=== PATIENT | male | born 1975 | race Caucasian/White ===

== ENCOUNTER 2019-09-14 10:33 | Inpatient (IN) ==
[2019-09-14] MEDS ORDERED: IOPAMIDOL 100 ML BOTTLE IV ONE (10:34)
[2019-09-14] MEDS ORDERED: 0.9 % SODIUM CHLORIDE 1,000 ML IV ONE ×2 (10:51→12:00)
--- NOTE | 2019-09-14 11:18 | Emergency Department Note ---
Abdominal Pain HPI - General Chief Complaint: Abdominal Pain Stated Complaint: Abdominal pain Time Seen by Provider: 09/14/19 11:15 Source: patient Mode of arrival: ambulatory Limitations: no limitations - History of Present Illness HPI Narrative: 44-year-old male comes in complaining of right lower quadrant pain for the last 2 weeks. Yesterday he developed a fever. He notes watery diarrhea that is been going on around the same time. Denies any trouble urinating or shortness of breath. No nausea or vomiting. Pain in the right lower quadrant is significant but only with movement at rest its much lower in quality. Pain is sharp stabbing and goes down into his right groin. He has had bilateral inguinal hernia repair as a child. Patient initially went to [facility] where he was seen by Virgil Alvarado. He was sent over out of concern for possible appendicitis. I took report from Virgil and agreed to accept the patient Patient is currently being treated by [facility] for back pain and has had several steroid shots - Related Data Previous Rx's Medication Instructions Recorded valacyclovir 500 mg tablet 500 mg PO BID PRN #60 tab 05/04/18 gabapentin 300 mg capsule 300 mg PO QHS #15 cap 03/25/19 hydrocodone 5 mg-acetaminophen 325 See Rx Instructions .ROUTE 03/25/19 mg tablet .COMPLEX PRN #15 tab lidocaine 5 % topical patch 1 patch TOPICAL QDAY #15 each 03/25/19 Allergies Allergy/AdvReac Type Severity Reaction Status Date / Time wool Allergy Unknown itchy, Verified 09/14/19 10:33 swollen lips gabapentin AdvReac Mild Other Verified 09/14/19 10:34 hydrocodone AdvReac Mild Nausea Verified 09/14/19 10:34 tramadol AdvReac Mild Nausea Verified 09/14/19 10:34 Review of Systems All systems ED: reviewed and negative except as stated. Abdominal Pain PMH - Past Medical History Attestation: Yes: The following information was validated with the patient. PMF Narrative: Family History (Last Reviewed 03/09/19 @ 18:27 by Virgil Choi PA-C) Father Cholelithiasis Chronic kidney disease Heart disease Hypertension, essential Myocardial infarction acute, Onset Age: 37 Tobacco abuse Mother Depression Depressive disorder Grandmother Diabetes mellitus Brother Motor vehicle accident Medical History (Last Reviewed 03/25/19 @ 15:45 by Little Bellamy DO) Recurrent cold sores (Chronic) Migraine (Chronic) Kidney stones (Chronic) Past Surgical History (Last Reviewed 03/09/19 @ 18:27 by Virgil Choi PA-C) History of hernia surgery (Chronic) History of wisdom tooth extraction (Chronic) - Social History Smoking status: Never smoker Physical Exam No acute distress resting comfortably. Normocephalic atraumatic. Conjunctive are clear sclerae white nonicteric. No nasal discharge or congestion. Oropharynx pink moist. Posterior pharynx is clear. Neck is supple without lymphadenopathy thyromegaly or carotid bruit. Heart is regular rate and rhythm no murmur appreciated. Lungs are clear to auscultation bilaterally without wheezes rales rhonchi or respiratory distress. Abdomen is soft significantly tender in the right lower quadrant. Pain does radiate down his leg. No guarding. No rigidity. Alert oriented Limitations: no limitations Course Vital Signs Temperature 98.1 F 09/14/19 10:34 Pulse Rate 146 H 09/14/19 10:34 Respiratory Rate 16 09/14/19 10:34 Blood Pressure 142/92 09/14/19 10:34 Pulse Oximetry (%) 97 09/14/19 10:34 Temperature 103 F H 09/14/19 11:42 Pulse Rate 128 H 09/14/19 11:50 Respiratory Rate 16 09/14/19 10:34 Blood Pressure 152/91 09/14/19 11:50 Pulse Oximetry (%) 98 09/14/19 11:50 Abdominal Pain - Lab Data Lab results reviewed: Yes I reviewed the patient's lab results. Result diagrams: 09/14/19 10:51 09/14/19 10:51 Lab Results 09/14/19 09/14/19 09/14/19 Range/Units 10:51 10:51 10:51 WBC 20.0 H (4.50-11.00) K/mcL RBC 4.47 L (4.63-6.08) M/mcL Hgb 14.8 (13.7-17.5) g/dL Hct 43.8 (40.1-51.0) % MCV 98.0 (80.0-100.0) fL MCH 33.1 (26.0-34.0) pg MCHC 33.8 (31.0-36.0) g/dL RDW 12.4 (11.5-14.5) % Plt Count 333 (140-440) K/mcL MPV 10.1 (7.4-10.4) fL Gran % 81.9 H (38.0-78.0) % Lymph % (Auto) 7.2 L (15.5-49.0) % [place] % (Auto) 10.4 (1.0-12.0) % Eos % (Auto) 0.2 (0.0-7.0) % Baso % (Auto) 0.3 (0.0-2.0) % Gran # 16.39 H (1.80-8.00) K/mcL Lymph # (Auto) 1.45 L (1.50-4.80) K/mcL [place] # (Auto) 2.09 H (0.10-0.90) K/mcL Eos # (Auto) 0.04 (0.00-0.70) K/mcL Baso # (Auto) 0.07 (0.00-0.30) K/mcL Differential Comment VBG Lactic Acid 1.3 (0.5-2.0) mmol/L Sodium TNP Potassium TNP Chloride TNP Carbon Dioxide TNP Anion Gap TNP BUN TNP Creatinine TNP GFR Calculation Not Reportable Glucose TNP Calcium TNP Total Bilirubin TNP AST TNP ALT TNP Alkaline Phosphatase TNP Total Protein TNP Albumin TNP Globulin TNP Albumin/Globulin Ratio TNP - Radiology Data Radiology results reviewed: Yes I reviewed the patient's radiology results. CT scan of the abdomen pelvis with contrast shows large appendix with pe riappendiceal inflammation consistent with severe appendicitis and abscess Disposition Pt seen by CHIEF OPERATING ENGINEER/PA only: No Clinical Impression: Acute appendicitis Qualifiers: Acute appendicitis type: with localized peritonitis Appendicitis gangrene presence: unspecified whether gangrene present Appendicitis perforation presence: unspecified whether perforation present Appendicitis abscess presence: with abscess Qualified Code(s): K35.33 - Acute appendicitis with perforation and localized peritonitis, with abscess Summary: Right lower quadrant pain with fever concerning for appendicitis but other possibilities include ureterolithiasis intra-abdominal abscess and other serious pathologies. CT scan is ordered along with IV fluids pain medicine and nausea medicine. Tylenol for fever. Laboratories Blood culture ordered as well as Zosyn CT scan showed severe appendicitis with abscess. He does have leukocytosis as well but laboratories were hemolyzed so chemistries had to be repeated. I discussed these findings with Dr. Kenneth Valdez, general surgeon. He advised me to go ahead admit the patient to the hospital treat pain nausea and keep him n.p.o. for surgery later this afternoon. I will write transition orders Disposition: Xfer As Inpt ([facility]) Condition: Fair Referrals: Amy Phelps DNP, FILLER MIXER [Primary Care Provider] - Kenneth Valdez MD [Physician] -
[2019-09-14] MEDS ORDERED: ACETAMINOPHEN 325 MG TABLET PO ONE (11:21)
[2019-09-14] MEDS ORDERED: ONDANSETRON 4 MG/2 ML VIAL IV ONE ×2 (11:30→15:09)
[2019-09-14] MEDS ORDERED: PIPERACILLIN SODIUM/TAZOBACTAM 3.375 GM in DEXTROSE 5% IN WATER 50 ML IV ONE (11:38)
--- NOTE | 2019-09-14 11:41 | Cat Scan Report ---
History: Right lower quadrant pain, fever and diarrhea TECHNIQUE: The patient was imaged following intravenous but no oral contrast scanning during the portal venous phase from the diaphragm to the symphysis pubis. Sagittal and coronal reformats were created. Radiation exposure was limited using dose reduction technology. FINDINGS: There is minor dependent atelectasis in right lung base. No pleural effusion is present. The liver and spleen are normal in size and homogeneous. The gallbladder and bile ducts are normal. The pancreas is normal and homogeneous, without evidence of a mass or inflammation. The adrenals are normal. There is mild stranding of the pararenal fat around the right kidney and there is a 1 mm nonobstructing stone in a lower pole calyx of right kidney. There is no hydronephrosis. Left kidney is normal. Both ureters are decompressed. Aorta and inferior vena cava are normal. Patient has severe acute appendicitis. The appendix measures 2.7 cm in diameter and there is a large amount of perivesical appendiceal inflammation. A periappendiceal abscess is present posterior and inferior to the appendix. It is located lateral to the right psoas muscle and above the iliac is. It measures 4 x 5 x 7 cm. There is no evidence of bowel obstruction. No ascites or free intraperitoneal air are present. There are no abnormally enlarged lymph nodes. Urinary bladder is normal. Prostate is borderline enlarged and contains several calcifications in the transitional zone. There is a fat-containing left inguinal hernia. IMPRESSION: Severe appendicitis with a periappendiceal abscess The ER was called with results Interpreted and Authenticated by: Jean Paul Guevara 09/14/19
[2019-09-14 11:52] LABS: Basophils # (Auto) 0.07 K/mcL (0.00-0.30); Basophils % (Auto) 0.3 % (0.0-2.0); Eosinophils # (Auto) 0.04 K/mcL (0.00-0.70); Eosinophils % (Auto) 0.2 % (0.0-7.0); Granulocytes % (Auto) 81.9 % (38.0-78.0); Hematocrit 43.8 % (40.1-51.0); Hemoglobin 14.8 g/dL (13.7-17.5); Lymphocytes # (Auto) 1.45 K/mcL (1.50-4.80); Lymphocytes % (Auto) 7.2 % (15.5-49.0); Mean Corpuscular HGB Conc 33.8 g/dL (31.0-36.0); Mean Platelet Volume 10.1 fL (7.4-10.4); Monocytes # (Auto) 2.09 K/mcL (0.10-0.90); Monocytes % (Auto) 10.4 % (1.0-12.0); Platelet Count 333 K/mcL (140-440); RBC 4.47 M/mcL (4.63-6.08); Red Cell Distribution Width 12.4 % (11.5-14.5)
[2019-09-14] MEDS: HYDROmorphone 2 MG/ML VIAL IV PRN ×3 (11:59→19:02)
[2019-09-14] MEDS ORDERED: ONDANSETRON 4 MG/2 ML VIAL IV PRN ×3 (12:06→18:25)
[2019-09-14] MEDS ORDERED: 0.9 % SODIUM CHLORIDE 1,000 ML IV SCH (12:15)
--- NOTE | 2019-09-14 12:31 | XRay Report ---
HISTORY: Preop for appendicitis FINDINGS: Right diaphragm is mild to moderately elevated. This is of undetermined etiology. The lungs are clear. There is no pneumonia, pulmonary vascular congestion or pleural effusion. The heart size, mediastinum and anahy are normal. IMPRESSION: Elevated right diaphragm. The chest is otherwise normal. Interpreted and Authenticated by: Jean Paul Guevara 09/14/19
[2019-09-14 12:52] LABS: Prothrombin Time 13.5 sec (11.9-14.5)
[2019-09-14 12:58] LABS: Appearance,Urine CLEAR; Bacteria,Urine 0 /hpf (0); Bilirubin,Urine NEG (NEG); Color,Urine YELLOW; Culture Indicated,Urine NO; Glucose,Urine (UA) NEGATIVE (NEG); Ketones,Urine 80 mg/dL (NEG); Leukocyte Esterase,Urine NEG /uL (NEG); Mucus,Urine FEW /hpf (0); Nitrate,Urine NEG (NEG); Protein,Urine NEG (NEG); Specific Gravity,Urine 1.027 (1.000-1.035); Urine Blood NEG mg/dL (<0.03); Urine RBC < 1 /hpf (0-1); Urine Squamous Epithelial Cell 0 /hpf (0-4); Urine WBC < 1 /hpf (0-4); Urobilinogen,Urine NEG (NEG)
[2019-09-14] MEDS ORDERED: IPRATROPIUM/ALBUTEROL 3 ML AMPUL.NEB NEB PRN ×2 (13:45→15:48)
[2019-09-14] MEDS ORDERED: SCOPOLAMINE 1 PATCH PATCH TOPICAL PRN ×2 (13:45→18:25)
--- NOTE | 2019-09-14 14:45 | General Surg History&Physical ---
History of Present Illness Patient information: Note initiated : 09/14/19 at 2:42 pm Service Date, if different from initiated Date: [] Patient: Felix Morin 44 y/o M admitted on 09/14/19 for Abdominal Pain. Chief Complaint: [] HPI: Mr. Morin is a 44 year old M admitted with acute appendicitis with possible pe rforation and periappendiceal abscess. Patient has had right lower quadrant pain of a progressive nature for at least 2 weeks. He has had fever and sweats for the last 7-10 days. He noted increasing difficulty with lifting his right leg and felt a sharp pain in his right groin with increase in his abdominal pain. He was seen and minor care and referred to the emergency room. He is noted to have elevated temperature with white count of 20,000. CT of the abdomen shows a very infected appendix with extensive periappendiceal tissue edema and a large para appendiceal abscess. Patient is admitted and will have an attempt at laparoscopic appendectomy. He is informed that he may have to have an open procedure. Review of Systems All systems PM: reviewed and no additional remarkable complaints except as stated (negative except as noted in the HPI) Past History Past medical history: Chronic low back pain Past surgical history: Bilateral inguinal hernias as an infant Past family history: Coronary artery disease. Hypertension. Diabetes mellitus Past social history: Never smoker. Frequent alcohol use. Denies drug use Medications and Allergies Home Medications Medication Instructions Recorded Confirmed Type No Known Home Meds 09/14/19 09/14/19 History Allergies Allergy/AdvReac Type Severity Reaction Status Date / Time wool Allergy Unknown itchy, Verified 09/14/19 10:33 swollen lips gabapentin AdvReac Mild Other Verified 09/14/19 10:34 hydrocodone AdvReac Mild Nausea Verified 09/14/19 10:34 tramadol AdvReac Mild Nausea Verified 09/14/19 10:34 Exam Temp Pulse Resp BP Pulse Ox 98.5 F 116 H 16 126/83 95 09/14/19 12:39 09/14/19 12:39 09/14/19 12:39 09/14/19 12:39 09/14/19 12:39 - General physical appearance well developed, well nourished, moderate distress, moderate pain - Eyes PERRL, normal ocular movement - ENT normal pinna, normal nares, normal mucosa, no hearing loss, no congestion - Head Head exam IM: Present: atraumatic, normocephalic - Neck no masses, no bruits, trachea midline, no lymphadenopathy, no venous distension - Cardiovascular Cardiovascular exam IM: Present: normal rate and rhythm - Respiratory normal expansion, normal respiratory effort, clear to percussion, clear to auscultation - Abdomen Abdomen: Present: tender (tenderness with guarding and rebound in right lower quadrant), bowel sounds, masses ( palpable mass right lower quadrant) Hernia: Present: none - Genitourinary Present: normal penis with no external lesions - Integumentary Present: no rash, no growths, no abnormal pigmentation - Neurologic Present: normal coordination, normal sensation - Musculoskeletal Present: normal gait, normal posture - Psychiatric Present: oriented to time, oriented to person, oriented to place, speech is normal, memory intact Assessment and Plan (1) Acute appendicitis with perforation and localized peritonitis, with abscess Patient has been started on antibiotics and has been counseled for laparoscopic appendectomy. Because of the size of the abscess. He may need to have open procedure for better drainage and irrigation. Status: Acute
[2019-09-14 14:48] LABS: ALT/SGPT 59 U/l (0-40); AST/SGOT 44 U/l (0-37); Albumin 3.5 gm/dL (3.2-5.2); Albumin/Globulin Ratio 0.9 (1.0-2.3); Alkaline Phosphatase 71 U/L (39-117); Bilirubin,Total 0.4 mg/dL (0.0-1.0); Blood Urea Nitrogen 6 mg/dl (6-20); Calcium 8.5 mg/dl (8.6-10.4); Carbon Dioxide 18 mmol/L (22-30); Globulin 3.7 gm/dL (2.2-3.7); Glomerular Filtration Rate 108; Glucose 99 mg/dL (70-105)
[2019-09-14 14:51] LABS: Chloride 95 mmol/L (96-108)
[2019-09-14] MEDS ORDERED: fentaNYL 250 MCG/5 ML VIAL IV ONE (15:09)
[2019-09-14] MEDS ORDERED: SUGAMMADEX SODIUM 200 MG/2 ML VIAL IV ONE (15:09)
[2019-09-14] MEDS ORDERED: KETAMINE 100 MG/ML ML IV ONE (15:09)
[2019-09-14] MEDS ORDERED: LIDOCAINE HCL/PF 100 MG/5 ML SYRINGE IV ONE (15:09)
[2019-09-14] MEDS ORDERED: SUCCINYLCHOLINE 20 MG/ML ML IV ONE (15:09)
[2019-09-14] MEDS ORDERED: DEXAMETHASONE 10 MG/ML VIAL IV ONE (15:09)
[2019-09-14] MEDS ORDERED: PROPOFOL 200 MG/20 ML VIAL IV ONE (15:09)
[2019-09-14] MEDS ORDERED: ROCURONIUM 10 MG/ML ML IV ONE (15:09)
[2019-09-14] MEDS ORDERED: MIDAZOLAM 2 MG/2 ML VIAL IV ONE (15:09)
[2019-09-14] MEDS ORDERED: HETASTARCH 6% 500 ML BAG IV ONE (15:09)
[2019-09-14] MEDS ORDERED: METOPROLOL TARTRATE 5 MG/5 ML VIAL IV PRN (15:48)
[2019-09-14] MEDS ORDERED: PROMETHAZINE 25 MG/ML VIAL IV PRN ×2 (15:48→18:25)
[2019-09-14] MEDS ORDERED: HYDROmorphone 2 MG/ML VIAL IV PRN ×2 (15:48→18:25)
[2019-09-14] MEDS ORDERED: ePHEDrine 50 MG/ML AMPUL IV PRN (15:48)
[2019-09-14] MEDS ORDERED: ACETAMINOPHEN 1,000 MG/100 ML BOTTLE IV ONE (15:48)
[2019-09-14] MEDS ORDERED: diphenhydrAMINE 50 MG/ML VIAL IV PRN (15:48)
[2019-09-14] MEDS ORDERED: NALOXONE HCL 0.4 MG/ML VIAL IV PRN (15:48)
[2019-09-14] MEDS ORDERED: METHOCARBAMOL 1,000 MG/10 ML VIAL IV PRN (15:48)
[2019-09-14] MEDS ORDERED: ATROPINE SULFATE 0.4 MG/ML VIAL IV PRN (15:48)
[2019-09-14] MEDS ORDERED: MEPERIDINE 25 MG/ML SYRINGE IV PRN (15:48)
[2019-09-14] MEDS ORDERED: FLUMAZENIL 0.1 MG/ML ML IV PRN (15:48)
[2019-09-14] MEDS ORDERED: LACTATED RINGERS 1,000 ML IV SCH (16:00)
--- NOTE | 2019-09-14 16:35 | Brief Operative Note ---
Date of procedure: 09/14/19 Pre-op diagnosis: acute perforated appendicitis with abscess Post-op diagnosis: other (acute perforated appendicitis with abscess) Procedure: laparoscopic appendectomy with drainage of appendiceal abscess Grafts/Implants: No (agnieszka drain x2) Anesthesia: GETA Findings: appendix perforated in mid portion with major abscess at end of appendix Complications: none Surgeon: Kasey Valdez Estimated blood loss (cc): 50 Specimens Removed/Pathology: other (appendix) Condition: stable Disposition: PACU
[2019-09-14] MEDS: fentaNYL 100 MCG/2 ML VIAL IV PRN ×4 (17:00→17:10)
[2019-09-14] MEDS ORDERED: PIPERACILLIN SODIUM/TAZOBACTAM 3.375 GM in DEXTROSE 5% IN WATER 50 ML IV SCH (18:00)
[2019-09-14] MEDS: 0.9 % SODIUM CHLORIDE 1,000 ML IV SCH (19:02)
[2019-09-15] MEDS: PIPERACILLIN SODIUM/TAZOBACTAM 3.375 GM in DEXTROSE 5% IN WATER 50 ML IV SCH ×4 (00:22→18:12)
[2019-09-15] MEDS: HYDROmorphone 2 MG/ML VIAL IV PRN ×9 (00:22→23:04)
[2019-09-15] MEDS: 0.9 % SODIUM CHLORIDE 1,000 ML IV SCH ×3 (02:20→18:17)
[2019-09-15 06:31] LABS: Basophils # (Auto) 0.03 K/mcL (0.00-0.30); Basophils % (Auto) 0.1 % (0.0-2.0); Eosinophils # (Auto) 0.02 K/mcL (0.00-0.70); Eosinophils % (Auto) 0.1 % (0.0-7.0); Granulocytes % (Auto) 90.2 % (38.0-78.0); Hematocrit 41.6 % (40.1-51.0); Hemoglobin 13.5 g/dL (13.7-17.5); Lymphocytes # (Auto) 0.85 K/mcL (1.50-4.80); Lymphocytes % (Auto) 4.1 % (15.5-49.0); Mean Corpuscular HGB Conc 32.5 g/dL (31.0-36.0); Mean Platelet Volume 9.9 fL (7.4-10.4); Monocytes # (Auto) 1.14 K/mcL (0.10-0.90); Monocytes % (Auto) 5.5 % (1.0-12.0); Platelet Count 314 K/mcL (140-440); RBC 4.16 M/mcL (4.63-6.08); Red Cell Distribution Width 12.5 % (11.5-14.5); WBC 20.7 K/mcL (4.50-11.00)
[2019-09-15 07:09] LABS: ALT/SGPT 46 U/l (0-40); AST/SGOT 19 U/l (0-37); Albumin/Globulin Ratio 0.8 (1.0-2.3); Alkaline Phosphatase 54 U/L (39-117); Bilirubin,Direct < 0.2 mg/dL (0.0-0.3); Bilirubin,Total 0.5 mg/dL (0.0-1.0); Blood Urea Nitrogen 5 mg/dl (6-20); Calcium 8.6 mg/dl (8.6-10.4); Carbon Dioxide 21 mmol/L (22-30); Chloride 103 mmol/L (96-108); Globulin 3.9 gm/dL (2.2-3.7); Glomerular Filtration Rate 121; Glucose 190 mg/dL (70-105); Lactate Dehydrogenase 171 U/L (94-250); Triglycerides 50 mg/dl (<150); Uric Acid 4.2 mg/dL (2.5-8.0)
[2019-09-15] MEDS: ONDANSETRON 4 MG/2 ML VIAL IV PRN ×2 (09:32→15:44)
[2019-09-15] MEDS: SIMETHICONE 80 MG TAB.CHEW CHEWED PRN ×2 (12:39→15:44)
[2019-09-15] MEDS: METOCLOPRAMIDE 10 MG/2 ML VIAL IV SCH (18:12)
[2019-09-15] MEDS: MAG HYDROX/AL HYDROX/SIMETH 30 ML ORAL.SUSP PO PRN (19:46)
[2019-09-16] MEDS: PIPERACILLIN SODIUM/TAZOBACTAM 3.375 GM in DEXTROSE 5% IN WATER 50 ML IV SCH ×4 (00:30→17:42)
[2019-09-16] MEDS: METOCLOPRAMIDE 10 MG/2 ML VIAL IV SCH ×4 (00:57→17:43)
[2019-09-16] MEDS: 0.9 % SODIUM CHLORIDE 1,000 ML IV SCH ×4 (01:00→17:20)
[2019-09-16] MEDS: HYDROmorphone 2 MG/ML VIAL IV PRN ×8 (01:10→22:18)
[2019-09-16] MEDS: ACETAMINOPHEN 1,000 MG/100 ML BOTTLE IV PRN ×2 (02:29→16:05)
[2019-09-16 06:58] LABS: Basophils # (Auto) 0.03 K/mcL (0.00-0.30); Basophils % (Auto) 0.1 % (0.0-2.0); Eosinophils # (Auto) 0.01 K/mcL (0.00-0.70); Eosinophils % (Auto) 0 % (0.0-7.0); Granulocytes % (Auto) 88.4 % (38.0-78.0); Hematocrit 37.2 % (40.1-51.0); Hemoglobin 12.2 g/dL (13.7-17.5); Lymphocytes % (Auto) 6.1 % (15.5-49.0); Mean Cell Volume 99.5 fL (80.0-100.0); Mean Corpuscular HGB Conc 32.8 g/dL (31.0-36.0); Mean Platelet Volume 10.1 fL (7.4-10.4); Monocytes # (Auto) 1.16 K/mcL (0.10-0.90); Monocytes % (Auto) 5.4 % (1.0-12.0); Platelet Count 331 K/mcL (140-440); RBC 3.74 M/mcL (4.63-6.08); Red Cell Distribution Width 12.5 % (11.5-14.5); WBC 21.5 K/mcL (4.50-11.00)
[2019-09-16 07:37] LABS: ALT/SGPT 34 U/l (0-40); AST/SGOT 17 U/l (0-37); Albumin 2.7 gm/dL (3.2-5.2); Albumin/Globulin Ratio 0.9 (1.0-2.3); Alkaline Phosphatase 61 U/L (39-117); Bilirubin,Direct < 0.2 mg/dL (0.0-0.3); Bilirubin,Total 0.2 mg/dL (0.0-1.0); Blood Urea Nitrogen 6 mg/dl (6-20); Calcium 8.9 mg/dl (8.6-10.4); Chloride 99 mmol/L (96-108); Glomerular Filtration Rate 114; Glucose 150 mg/dL (70-105); Lactate Dehydrogenase 161 U/L (94-250); Triglycerides 78 mg/dl (<150)
[2019-09-16 07:40] LABS: Carbon Dioxide 26 mmol/L (22-30); Phosphorous 2.9 mg/dL (2.7-4.5)
--- NOTE | 2019-09-16 07:41 | General Surgery Progress Note ---
Subjective Narrative: Note initiated : 09/16/19 at 7:41 am Service Date, if different from initiated Date: [] Patient: Felix Morin 44 y/o M admitted on 09/14/19 for Abdominal Pain. Chief Complaint: [] Objective Temp Pulse Resp BP Pulse Ox 97.2 F 95 H 16 131/89 95 09/16/19 06:45 09/16/19 03:11 09/16/19 06:45 09/16/19 06:45 09/16/19 06:45 - Additional Data Intake & Output - Last 24 hours: Intake & Output 09/14/19 09/15/19 09/16/19 09/17/19 05:59 05:59 05:59 05:59 Intake Total 5200 6140 700 Output Total 4245 2565 740 Balance 955 3575 -40 Weight 217 lb 11.2 oz 228 lb 8 oz - Labs 09/16/19 05:31 09/16/19 03:41 Diabetes panel 09/16/19 Range/Units 03:41 Sodium 137 (133-145) mmol/L Potassium 3.9 (3.3-5.1) mmol/L Chloride 99 (96-108) mmol/L Carbon Dioxide 26 (22-30) mmol/L BUN 6 (6-20) mg/dl Creatinine 0.7 (0.7-1.2) mg/dl Glucose 150 H (70-105) mg/dL Calcium 8.9 (8.6-10.4) mg/dl AST 17 (0-37) U/l ALT 34 (0-40) U/l Alkaline Phosphatase 61 (39-117) U/L Total Protein 5.7 L (5.9-8.4) gm/dL Albumin 2.7 L (3.2-5.2) gm/dL Triglycerides 78 (<150) mg/dl Calcium panel 09/16/19 Range/Units 03:41 Calcium 8.9 (8.6-10.4) mg/dl Phosphorus 2.9 (2.7-4.5) mg/dL Albumin 2.7 L (3.2-5.2) gm/dL Pituitary panel 09/16/19 Range/Units 03:41 Sodium 137 (133-145) mmol/L Potassium 3.9 (3.3-5.1) mmol/L Chloride 99 (96-108) mmol/L Carbon Dioxide 26 (22-30) mmol/L BUN 6 (6-20) mg/dl Creatinine 0.7 (0.7-1.2) mg/dl Glucose 150 H (70-105) mg/dL Calcium 8.9 (8.6-10.4) mg/dl Adrenal panel 09/16/19 Range/Units 03:41 Sodium 137 (133-145) mmol/L Potassium 3.9 (3.3-5.1) mmol/L Chloride 99 (96-108) mmol/L Carbon Dioxide 26 (22-30) mmol/L BUN 6 (6-20) mg/dl Creatinine 0.7 (0.7-1.2) mg/dl Glucose 150 H (70-105) mg/dL Calcium 8.9 (8.6-10.4) mg/dl Total Bilirubin 0.2 (0.0-1.0) mg/dL AST 17 (0-37) U/l ALT 34 (0-40) U/l Alkaline Phosphatase 61 (39-117) U/L Total Protein 5.7 L (5.9-8.4) gm/dL Albumin 2.7 L (3.2-5.2) gm/dL Assessment and Plan (1) Acute appendicitis with perforation and localized peritonitis, with abscess Status: Acute Current Visit: Yes - Time Spent With Patient Total time spent is greater than 50% in coordination of care (as documented) at patient's floor/unit and/or counseling patient:
[2019-09-16] MEDS: ONDANSETRON 4 MG/2 ML VIAL IV PRN (09:40)
[2019-09-16] MEDS: SIMETHICONE 80 MG TAB.CHEW CHEWED PRN (11:55)
--- NOTE | 2019-09-16 12:43 | Surgical Pathology Report ---
HISTOLOGY SPECIMEN MICROSCOPIC DIAGNOSIS APPENDIX, APPENDECTOMY: -- ACUTE APPENDICITIS WITH SEROSITIS. (EBD:adj) PROCEDURAL IMPRESSION Acute appendicitis. GROSS DESCRIPTION Received in formalin labeled appendicitis/appendix, is a fragmented appendix. When reconstructed it is approximately 6 cm long by up to 1.6 cm in diameter, pink to purple-heller appendix. The lumen contains a minimal amount of soft pink-heller material. The tip is disrupted. A large possible perforation is present where the two fragments are . Bank Boss sections submitted in two cassettes. (STS:adj) Electronically Signed by: Tigist Alston M.D.
--- NOTE | 2019-09-16 16:04 | General Surgery Progress Note ---
Subjective Patient reports: pain is less, no flatus, no bowel movement, nausea, afebrile Narrative: Note initiated : 09/16/19 at 4:02 pm Service Date, if different from initiated Date: [] Patient: Felix Morin 44 y/o M admitted on 09/14/19 for Abdominal Pain. Chief Complaint: [Patient has significant ileus with bloating. He complains of his abdomen feeling tight. He has not had flatus for. He also has some reflux symptoms. He's been afebrile. However, his white blood count is still elevated at 21.5. Inpatient panel is normal.] Objective Temp Pulse Resp BP Pulse Ox 99.2 F H 122 H 16 149/86 92 09/16/19 12:00 09/16/19 12:00 09/16/19 12:00 09/16/19 12:00 09/16/19 12:00 - Additional Data Intake & Output - Last 24 hours: Intake & Output 09/14/19 09/15/19 09/16/19 09/17/19 05:59 05:59 05:59 05:59 Intake Total 5200 6140 2260 Output Total 4245 2565 1280 Balance 955 3575 980 Weight 217 lb 11.2 oz 228 lb 8 oz - General physical appearance well developed, well nourished, moderate distress, moderate pain - Eyes PERRL, normal ocular movement - ENT normal pinna, normal nares, normal mucosa, no hearing loss, no congestion - Neck no masses, no bruits, trachea midline, no lymphadenopathy, no venous distension - Respiratory normal expansion, normal respiratory effort, clear to auscultation - Cardiovascular Cardiovascular exam: Present: normal rate and rhythm, RRR, +S1, +S2. Absent: JVD, tachycardia - Abdomen distended (abdomen is distended with active bowel sounds; moderate tenderness in right lateral abdomen) - Integumentary no rash, no growths, no abnormal pigmentation - Neurologic normal coordination, normal sensation - Musculoskeletal normal gait, normal posture - Psychiatric oriented to time, oriented to person, oriented to place, speech is normal, memory intact - Labs 09/16/19 05:31 09/16/19 03:41 Diabetes panel 09/16/19 Range/Units 03:41 Sodium 137 (133-145) mmol/L Potassium 3.9 (3.3-5.1) mmol/L Chloride 99 (96-108) mmol/L Carbon Dioxide 26 (22-30) mmol/L BUN 6 (6-20) mg/dl Creatinine 0.7 (0.7-1.2) mg/dl Glucose 150 H (70-105) mg/dL Calcium 8.9 (8.6-10.4) mg/dl AST 17 (0-37) U/l ALT 34 (0-40) U/l Alkaline Phosphatase 61 (39-117) U/L Total Protein 5.7 L (5.9-8.4) gm/dL Albumin 2.7 L (3.2-5.2) gm/dL Triglycerides 78 (<150) mg/dl Calcium panel 09/16/19 Range/Units 03:41 Calcium 8.9 (8.6-10.4) mg/dl Phosphorus 2.9 (2.7-4.5) mg/dL Albumin 2.7 L (3.2-5.2) gm/dL Pituitary panel 09/16/19 Range/Units 03:41 Sodium 137 (133-145) mmol/L Potassium 3.9 (3.3-5.1) mmol/L Chloride 99 (96-108) mmol/L Carbon Dioxide 26 (22-30) mmol/L BUN 6 (6-20) mg/dl Creatinine 0.7 (0.7-1.2) mg/dl Glucose 150 H (70-105) mg/dL Calcium 8.9 (8.6-10.4) mg/dl Adrenal panel 09/16/19 Range/Units 03:41 Sodium 137 (133-145) mmol/L Potassium 3.9 (3.3-5.1) mmol/L Chloride 99 (96-108) mmol/L Carbon Dioxide 26 (22-30) mmol/L BUN 6 (6-20) mg/dl Creatinine 0.7 (0.7-1.2) mg/dl Glucose 150 H (70-105) mg/dL Calcium 8.9 (8.6-10.4) mg/dl Total Bilirubin 0.2 (0.0-1.0) mg/dL AST 17 (0-37) U/l ALT 34 (0-40) U/l Alkaline Phosphatase 61 (39-117) U/L Total Protein 5.7 L (5.9-8.4) gm/dL Albumin 2.7 L (3.2-5.2) gm/dL Assessment and Plan (1) Acute appendicitis with perforation and localized peritonitis, with abscess Status: Acute Assessment and plan: We will continue present therapy. Patient is given milk of magnesia every 4 hours 4 doses. Will check abdominal series on Thursday. Current Visit: Yes - Time Spent With Patient Total time spent is greater than 50% in coordination of care (as documented) at patient's floor/unit and/or counseling patient:
[2019-09-16] MEDS: MAGNESIUM HYDROXIDE 30 ML ORAL.SUSP PO SCH ×2 (17:43→22:11)
[2019-09-16] MEDS: MAG HYDROX/AL HYDROX/SIMETH 30 ML ORAL.SUSP PO PRN (22:11)
[2019-09-17] MEDS: PIPERACILLIN SODIUM/TAZOBACTAM 3.375 GM in DEXTROSE 5% IN WATER 50 ML IV SCH ×3 (00:03→12:09)
[2019-09-17] MEDS: ONDANSETRON 4 MG/2 ML VIAL IV PRN (00:12)
[2019-09-17] MEDS: HYDROmorphone 2 MG/ML VIAL IV PRN ×8 (00:16→23:13)
[2019-09-17] MEDS: MAGNESIUM HYDROXIDE 30 ML ORAL.SUSP PO SCH ×2 (00:33→04:38)
[2019-09-17] MEDS: 0.9 % SODIUM CHLORIDE 1,000 ML IV SCH ×3 (00:37→17:08)
[2019-09-17] MEDS: ACETAMINOPHEN 1,000 MG/100 ML BOTTLE IV PRN ×2 (02:30→13:09)
[2019-09-17] MEDS: MAG HYDROX/AL HYDROX/SIMETH 30 ML ORAL.SUSP PO PRN (04:38)
[2019-09-17] MEDS: METOCLOPRAMIDE 10 MG/2 ML VIAL IV SCH ×4 (06:37→17:42)
[2019-09-17 06:42] LABS: Basophils # (Auto) 0.03 K/mcL (0.00-0.30); Basophils % (Auto) 0.2 % (0.0-2.0); Eosinophils # (Auto) 0.04 K/mcL (0.00-0.70); Eosinophils % (Auto) 0.2 % (0.0-7.0); Granulocytes % (Auto) 86.6 % (38.0-78.0); Hematocrit 38.4 % (40.1-51.0); Hemoglobin 12.5 g/dL (13.7-17.5); Lymphocytes # (Auto) 1.09 K/mcL (1.50-4.80); Lymphocytes % (Auto) 6.3 % (15.5-49.0); Mean Cell Volume 99.7 fL (80.0-100.0); Mean Corpuscular HGB Conc 32.6 g/dL (31.0-36.0); Monocytes # (Auto) 1.17 K/mcL (0.10-0.90); Monocytes % (Auto) 6.7 % (1.0-12.0); Platelet Count 381 K/mcL (140-440); RBC 3.85 M/mcL (4.63-6.08); Red Cell Distribution Width 12.8 % (11.5-14.5); WBC 17.4 K/mcL (4.50-11.00)
[2019-09-17 07:16] LABS: ALT/SGPT 29 U/l (0-40); AST/SGOT 13 U/l (0-37); Albumin 2.8 gm/dL (3.2-5.2); Albumin/Globulin Ratio 0.9 (1.0-2.3); Alkaline Phosphatase 71 U/L (39-117); Bilirubin,Direct < 0.2 mg/dL (0.0-0.3); Bilirubin,Total 0.2 mg/dL (0.0-1.0); Blood Urea Nitrogen 6 mg/dl (6-20); Calcium 8.8 mg/dl (8.6-10.4); Chloride 97 mmol/L (96-108); Globulin 3.1 gm/dL (2.2-3.7); Glomerular Filtration Rate 114; Glucose 157 mg/dL (70-105); Lactate Dehydrogenase 163 U/L (94-250); Phosphorous 3.2 mg/dL (2.7-4.5); Triglycerides 68 mg/dl (<150); Uric Acid 1.6 mg/dL (2.5-8.0)
[2019-09-17 07:17] LABS: Carbon Dioxide 32 mmol/L (22-30)
--- NOTE | 2019-09-17 13:39 | General Surgery Progress Note ---
Subjective Patient reports: feels better, pain is less, no flatus, no bowel movement Narrative: Note initiated : 09/17/19 at 1:37 pm Service Date, if different from initiated Date: [] Patient: Felix Morin 44 y/o M admitted on 09/14/19 for Abdominal Pain. Chief Complaint: [Patient is stable but still has significant ileus. He has abdominal distention. He did not have any fever spikes during the night. White blood count 17.4, hemoglobin 12.5, hematocrit 38.4. Cultures had finally been identified and he's growing out Escherichia coli Eikenella species and gram- positive cocci all 3 organisms are more sensitive to Cipro then said the pain so antibiotics were changed.] Objective Temp Pulse Resp BP Pulse Ox 98.0 F 127 H 20 143/95 92 09/17/19 13:09 09/17/19 12:00 09/17/19 12:00 09/17/19 12:00 09/17/19 12:00 - Additional Data Intake & Output - Last 24 hours: Intake & Output 09/15/19 09/16/19 09/17/19 09/18/19 05:59 05:59 05:59 05:59 Intake Total 5200 6140 5840 1577 Output Total 4245 2565 4575 450 Balance 955 3575 1265 1127 Weight 217 lb 11.2 oz 228 lb 8 oz 228 lb - General physical appearance well developed, well nourished, moderate distress, moderate pain - Eyes PERRL, normal ocular movement - ENT normal pinna, normal nares, normal mucosa, no hearing loss, no congestion - Neck no masses, no bruits, trachea midline, no lymphadenopathy, no venous distension - Respiratory normal expansion, normal respiratory effort, clear to auscultation - Cardiovascular Cardiovascular exam: Present: normal rate and rhythm, RRR, +S1, +S2, tachycardia. Absent: JVD - Abdomen tender (mild tenderness in right lower quadrant and around port sites), bowel sounds (present), surgical scars (none), masses (none), distended (major distention of abdomen. Throughout with you. Active bowel sounds) - Integumentary no rash, no growths, no abnormal pigmentation - Neurologic normal coordination, normal sensation - Musculoskeletal normal gait, normal posture - Psychiatric oriented to time, oriented to person, oriented to place, speech is normal, memory intact - Labs 09/17/19 05:40 09/17/19 05:40 Diabetes panel 09/17/19 Range/Units 05:40 Sodium 140 (133-145) mmol/L Potassium 3.5 (3.3-5.1) mmol/L Chloride 97 (96-108) mmol/L Carbon Dioxide 32 H (22-30) mmol/L BUN 6 (6-20) mg/dl Creatinine 0.7 (0.7-1.2) mg/dl Glucose 157 H (70-105) mg/dL Calcium 8.8 (8.6-10.4) mg/dl AST 13 (0-37) U/l ALT 29 (0-40) U/l Alkaline Phosphatase 71 (39-117) U/L Total Protein 5.9 (5.9-8.4) gm/dL Albumin 2.8 L (3.2-5.2) gm/dL Triglycerides 68 (<150) mg/dl Calcium panel 09/17/19 Range/Units 05:40 Calcium 8.8 (8.6-10.4) mg/dl Phosphorus 3.2 (2.7-4.5) mg/dL Albumin 2.8 L (3.2-5.2) gm/dL Pituitary panel 09/17/19 Range/Units 05:40 Sodium 140 (133-145) mmol/L Potassium 3.5 (3.3-5.1) mmol/L Chloride 97 (96-108) mmol/L Carbon Dioxide 32 H (22-30) mmol/L BUN 6 (6-20) mg/dl Creatinine 0.7 (0.7-1.2) mg/dl Glucose 157 H (70-105) mg/dL Calcium 8.8 (8.6-10.4) mg/dl Adrenal panel 09/17/19 Range/Units 05:40 Sodium 140 (133-145) mmol/L Potassium 3.5 (3.3-5.1) mmol/L Chloride 97 (96-108) mmol/L Carbon Dioxide 32 H (22-30) mmol/L BUN 6 (6-20) mg/dl Creatinine 0.7 (0.7-1.2) mg/dl Glucose 157 H (70-105) mg/dL Calcium 8.8 (8.6-10.4) mg/dl Total Bilirubin 0.2 (0.0-1.0) mg/dL AST 13 (0-37) U/l ALT 29 (0-40) U/l Alkaline Phosphatase 71 (39-117) U/L Total Protein 5.9 (5.9-8.4) gm/dL Albumin 2.8 L (3.2-5.2) gm/dL Assessment and Plan (1) Acute appendicitis with perforation and localized peritonitis, with abscess Status: Acute Assessment and plan: We will continue present therapy. Patient is given milk of magnesia every 4 hours 4 doses. Will check abdominal series on Thursday. Discontinue cefepime and start Cipro IV Current Visit: Yes - Time Spent With Patient Total time spent is greater than 50% in coordination of care (as documented) at patient's floor/unit and/or counseling patient:
[2019-09-17] MEDS: metroNIDAZOLE 500 MG/100 ML BAG IV SCH ×2 (15:36→19:15)
[2019-09-17] MEDS: CIPROFLOXACIN 400 MG/200 ML BAG IV SCH ×2 (17:45→23:37)
[2019-09-18] MEDS: metroNIDAZOLE 500 MG/100 ML BAG IV SCH ×5 (00:55→23:56)
[2019-09-18] MEDS: METOCLOPRAMIDE 10 MG/2 ML VIAL IV SCH ×5 (00:56→23:51)
[2019-09-18] MEDS: 0.9 % SODIUM CHLORIDE 1,000 ML IV SCH ×5 (01:00→20:45)
[2019-09-18] MEDS: HYDROmorphone 2 MG/ML VIAL IV PRN ×9 (02:03→23:55)
[2019-09-18] MEDS: CIPROFLOXACIN 400 MG/200 ML BAG IV SCH ×2 (09:41→20:48)
--- NOTE | 2019-09-18 13:14 | General Surgery Progress Note ---
Subjective Patient reports: feels better, pain is less, tolerating liquids well, flatus, bowel movement, afebrile Narrative: Note initiated : 09/18/19 at 1:12 pm Service Date, if different from initiated Date: [] Patient: Felix Morin 44 y/o M admitted on 09/14/19 for Abdominal Pain. Chief Complaint: [patient is clinically improved. He remains afebrile. He has had 3 bowel movements since yesterday. History Of Significantly Improve and He Denies Nausea.] Objective Temp Pulse Resp BP Pulse Ox 97.8 F 103 H 22 146/84 95 09/18/19 12:00 09/18/19 12:00 09/18/19 12:00 09/18/19 08:00 09/18/19 12:00 - Additional Data Intake & Output - Last 24 hours: Intake & Output 09/16/19 09/17/19 09/18/19 09/19/19 05:59 05:59 05:59 05:59 Intake Total 6140 5840 5267 2220 Output Total 2565 4575 1455 485 Balance 3575 1265 3812 1735 Weight 228 lb 8 oz 228 lb 231 lb - General physical appearance well developed, well nourished, no distress - Eyes PERRL, normal ocular movement - ENT normal pinna, normal nares, normal mucosa, no hearing loss, no congestion - Neck no masses, no bruits, trachea midline, no lymphadenopathy, no venous distension - Respiratory normal expansion, normal respiratory effort, clear to auscultation - Cardiovascular Cardiovascular exam: Present: normal rate and rhythm, RRR, +S1, +S2. Absent: JVD, tachycardia - Abdomen tender (moderate tenderness in right lower quadrant; mild distention; good active bowel sounds), bowel sounds (present), surgical scars (none), masses (none) - Integumentary no rash, no growths, no abnormal pigmentation - Neurologic normal coordination, normal sensation - Musculoskeletal normal gait, normal posture - Psychiatric oriented to time, oriented to person, oriented to place, speech is normal, memory intact - Labs 09/17/19 05:40 09/17/19 05:40 Assessment and Plan (1) Acute appendicitis with perforation and localized peritonitis, with abscess Status: Acute Assessment and plan: We will continue present therapy. Check CBC, an inpatient panel Current Visit: Yes - Time Spent With Patient Total time spent is greater than 50% in coordination of care (as documented) at patient's floor/unit and/or counseling patient:
[2019-09-18 15:31] LABS: Basophils # (Auto) 0.03 K/mcL (0.00-0.30); Basophils % (Auto) 0.2 % (0.0-2.0); Eosinophils # (Auto) 0.11 K/mcL (0.00-0.70); Eosinophils % (Auto) 0.7 % (0.0-7.0); Granulocytes % (Auto) 82.4 % (38.0-78.0); Hematocrit 40.4 % (40.1-51.0); Hemoglobin 12.9 g/dL (13.7-17.5); Lymphocytes # (Auto) 1.36 K/mcL (1.50-4.80); Lymphocytes % (Auto) 8.6 % (15.5-49.0); Mean Cell Volume 102.5 fL (80.0-100.0); Mean Corpuscular HGB Conc 31.9 g/dL (31.0-36.0); Mean Platelet Volume 9.9 fL (7.4-10.4); Monocytes # (Auto) 1.27 K/mcL (0.10-0.90); Monocytes % (Auto) 8.1 % (1.0-12.0); Platelet Count 421 K/mcL (140-440); RBC 3.94 M/mcL (4.63-6.08); Red Cell Distribution Width 12.9 % (11.5-14.5); WBC 15.8 K/mcL (4.50-11.00)
[2019-09-18] MEDS: ACETAMINOPHEN 1,000 MG/100 ML BOTTLE IV PRN (16:33)
[2019-09-19] MEDS: HYDROmorphone 2 MG/ML VIAL IV PRN ×3 (03:09→12:11)
[2019-09-19] MEDS: METOCLOPRAMIDE 10 MG/2 ML VIAL IV SCH ×4 (05:37→23:29)
[2019-09-19] MEDS: 0.9 % SODIUM CHLORIDE 1,000 ML IV SCH ×2 (05:37→08:20)
[2019-09-19] MEDS: metroNIDAZOLE 500 MG/100 ML BAG IV SCH ×4 (05:42→23:29)
[2019-09-19 06:04] LABS: Basophils # (Auto) 0.04 K/mcL (0.00-0.30); Basophils % (Auto) 0.3 % (0.0-2.0); Eosinophils # (Auto) 0.13 K/mcL (0.00-0.70); Eosinophils % (Auto) 0.9 % (0.0-7.0); Granulocytes % (Auto) 81.8 % (38.0-78.0); Hematocrit 34.6 % (40.1-51.0); Hemoglobin 11.2 g/dL (13.7-17.5); Lymphocytes % (Auto) 8.7 % (15.5-49.0); Mean Cell Volume 99.7 fL (80.0-100.0); Mean Corpuscular HGB Conc 32.4 g/dL (31.0-36.0); Mean Platelet Volume 9.5 fL (7.4-10.4); Monocytes # (Auto) 1.24 K/mcL (0.10-0.90); Monocytes % (Auto) 8.3 % (1.0-12.0); Platelet Count 385 K/mcL (140-440); RBC 3.47 M/mcL (4.63-6.08); Red Cell Distribution Width 12.7 % (11.5-14.5)
[2019-09-19 06:26] LABS: ALT/SGPT 29 U/l (0-40); AST/SGOT 20 U/l (0-37); Albumin 2.5 gm/dL (3.2-5.2); Albumin/Globulin Ratio 0.9 (1.0-2.3); Alkaline Phosphatase 46 U/L (39-117); Bilirubin,Direct < 0.2 mg/dL (0.0-0.3); Bilirubin,Total 0.3 mg/dL (0.0-1.0); Calcium 7.8 mg/dl (8.6-10.4); Chloride 99 mmol/L (96-108); Globulin 2.9 gm/dL (2.2-3.7); Glucose 114 mg/dL (70-105); Lactate Dehydrogenase 149 U/L (94-250); Phosphorous 2.6 mg/dL (2.7-4.5); Triglycerides 46 mg/dl (<150)
[2019-09-19 06:36] LABS: Blood Urea Nitrogen 4 mg/dl (6-20); Carbon Dioxide 25 mmol/L (22-30); Glomerular Filtration Rate 131; Uric Acid 2.6 mg/dL (2.5-8.0)
[2019-09-19] MEDS: oxyCODONE/APAP 10/325MG TABLET PO PRN ×3 (08:37→20:49)
[2019-09-19] MEDS: CIPROFLOXACIN 400 MG/200 ML BAG IV SCH ×2 (08:38→20:49)
[2019-09-19] MEDS: POTASSIUM PHOSPHATE 40 MEQ in DEXTROSE 5% IN WATER 500 ML IV SCH ×2 (13:11→18:50)
--- NOTE | 2019-09-19 15:39 | General Surgery Progress Note ---
Subjective Patient reports: feels better, pain is less, tolerating liquids well, flatus, bowel movement, afebrile Narrative: Note initiated : 09/19/19 at 3:36 pm Service Date, if different from initiated Date: [] Patient: Felix Morin 44 y/o M admitted on 09/14/19 for Abdominal Pain. Chief Complaint: [] Patient continues to improve. He has less pain. He has been afebrile. His white blood count has decreased to 15,000. He has had flatus and bowel movements. He denies nausea, vomiting. RAMÓN drainage is serous. Objective Temp Pulse Resp BP Pulse Ox 98.7 F 120 H 16 141/99 95 09/19/19 11:24 09/19/19 11:24 09/19/19 11:24 09/19/19 11:24 09/19/19 11:24 - Additional Data Intake & Output - Last 24 hours: Intake & Output 09/17/19 09/18/19 09/19/19 09/20/19 05:59 05:59 05:59 05:59 Intake Total 5840 5267 6780 810 Output Total 4575 1855 3238 1190 Balance 1265 3412 3542 -380 Weight 228 lb 231 lb 235 lb 9.6 oz - General physical appearance well developed, well nourished, no distress - Eyes PERRL, normal ocular movement - ENT normal pinna, normal nares, normal mucosa, no hearing loss, no congestion - Neck no masses, no bruits, trachea midline, no lymphadenopathy, no venous distension - Respiratory normal expansion, normal respiratory effort, clear to auscultation - Cardiovascular Cardiovascular exam: Present: normal rate and rhythm, RRR, +S1, +S2. Absent: JVD, tachycardia - Abdomen tender (minimal tenderness in right lower quadrant), bowel sounds (present), surgical scars (none), masses (. No palpable masses) - Integumentary no rash, no growths, no abnormal pigmentation - Neurologic normal coordination, normal sensation - Musculoskeletal normal gait, normal posture - Psychiatric oriented to time, oriented to person, oriented to place, speech is normal, memory intact - Labs 09/19/19 05:04 09/19/19 05:04 Diabetes panel 09/19/19 Range/Units 05:04 Sodium 134 (133-145) mmol/L Potassium 3.2 L (3.3-5.1) mmol/L Chloride 99 (96-108) mmol/L Carbon Dioxide 25 (22-30) mmol/L BUN 4 L (6-20) mg/dl Creatinine 0.5 L (0.7-1.2) mg/dl Glucose 114 H (70-105) mg/dL Calcium 7.8 L (8.6-10.4) mg/dl AST 20 (0-37) U/l ALT 29 (0-40) U/l Alkaline Phosphatase 46 (39-117) U/L Total Protein 5.4 L (5.9-8.4) gm/dL Albumin 2.5 L (3.2-5.2) gm/dL Triglycerides 46 (<150) mg/dl Calcium panel 09/19/19 Range/Units 05:04 Calcium 7.8 L (8.6-10.4) mg/dl Phosphorus 2.6 L (2.7-4.5) mg/dL Albumin 2.5 L (3.2-5.2) gm/dL Pituitary panel 09/19/19 Range/Units 05:04 Sodium 134 (133-145) mmol/L Potassium 3.2 L (3.3-5.1) mmol/L Chloride 99 (96-108) mmol/L Carbon Dioxide 25 (22-30) mmol/L BUN 4 L (6-20) mg/dl Creatinine 0.5 L (0.7-1.2) mg/dl Glucose 114 H (70-105) mg/dL Calcium 7.8 L (8.6-10.4) mg/dl Adrenal panel 09/19/19 Range/Units 05:04 Sodium 134 (133-145) mmol/L Potassium 3.2 L (3.3-5.1) mmol/L Chloride 99 (96-108) mmol/L Carbon Dioxide 25 (22-30) mmol/L BUN 4 L (6-20) mg/dl Creatinine 0.5 L (0.7-1.2) mg/dl Glucose 114 H (70-105) mg/dL Calcium 7.8 L (8.6-10.4) mg/dl Total Bilirubin 0.3 (0.0-1.0) mg/dL AST 20 (0-37) U/l ALT 29 (0-40) U/l Alkaline Phosphatase 46 (39-117) U/L Total Protein 5.4 L (5.9-8.4) gm/dL Albumin 2.5 L (3.2-5.2) gm/dL Assessment and Plan (1) Acute appendicitis with perforation and localized peritonitis, with abscess Status: Acute Assessment and plan: We will continue present therapy. Check CBC, an inpatient panel Current Visit: Yes - Time Spent With Patient Total time spent is greater than 50% in coordination of care (as documented) at patient's floor/unit and/or counseling patient:
[2019-09-20] MEDS: oxyCODONE/APAP 10/325MG TABLET PO PRN ×4 (02:21→18:00)
[2019-09-20] MEDS: 0.9 % SODIUM CHLORIDE 1,000 ML IV SCH (05:26)
[2019-09-20] MEDS: METOCLOPRAMIDE 10 MG/2 ML VIAL IV SCH ×2 (05:26→12:26)
[2019-09-20] MEDS: metroNIDAZOLE 500 MG/100 ML BAG IV SCH ×2 (05:26→12:26)
[2019-09-20 06:36] LABS: Basophils # (Auto) 0.02 K/mcL (0.00-0.30); Basophils % (Auto) 0.2 % (0.0-2.0); Eosinophils # (Auto) 0.11 K/mcL (0.00-0.70); Eosinophils % (Auto) 0.8 % (0.0-7.0); Granulocytes % (Auto) 80.7 % (38.0-78.0); Hematocrit 35.7 % (40.1-51.0); Hemoglobin 11.7 g/dL (13.7-17.5); Lymphocytes # (Auto) 1.18 K/mcL (1.50-4.80); Mean Cell Volume 99.4 fL (80.0-100.0); Mean Corpuscular HGB Conc 32.8 g/dL (31.0-36.0); Mean Platelet Volume 9.5 fL (7.4-10.4); Monocytes # (Auto) 1.21 K/mcL (0.10-0.90); Monocytes % (Auto) 9.3 % (1.0-12.0); Platelet Count 397 K/mcL (140-440); RBC 3.59 M/mcL (4.63-6.08); Red Cell Distribution Width 12.8 % (11.5-14.5)
[2019-09-20 07:25] LABS: Bilirubin,Direct < 0.2 mg/dL (0.0-0.3); Chloride 98 mmol/L (96-108)
[2019-09-20 07:33] LABS: ALT/SGPT 34 U/l (0-40); AST/SGOT 27 U/l (0-37); Albumin 2.6 gm/dL (3.2-5.2); Albumin/Globulin Ratio 0.9 (1.0-2.3); Alkaline Phosphatase 49 U/L (39-117); Bilirubin,Total 0.3 mg/dL (0.0-1.0); Blood Urea Nitrogen 4 mg/dl (6-20); Calcium 8.2 mg/dl (8.6-10.4); Carbon Dioxide 25 mmol/L (22-30); Globulin 2.8 gm/dL (2.2-3.7); Glomerular Filtration Rate 114; Glucose 124 mg/dL (70-105); Lactate Dehydrogenase 234 U/L (94-250); Phosphorous 3.2 mg/dL (2.7-4.5); Triglycerides 43 mg/dl (<150); Uric Acid 3.1 mg/dL (2.5-8.0)
[2019-09-20] MEDS: CIPROFLOXACIN 400 MG/200 ML BAG IV SCH (09:12)
--- NOTE | 2019-09-20 13:56 | Operative Note ---
DATE OF OPERATION: 09/14/2019 PREOPERATIVE DIAGNOSIS: Acute perforated appendicitis with abscess. POSTOPERATIVE DIAGNOSIS: Acute perforated appendicitis with abscess. PROCEDURE: Laparoscopic appendectomy with drainage of appendiceal abscess. SURGEON: Kasey Valdez M.D. FINDINGS: Appendix perforated in the mid portion with separation of the proximal and distal portion of the appendix with a major abscess at the base of the appendix and extending retrocecal and into the right gutter. DESCRIPTION OF PROCEDURE: Under general anesthesia, the patient's abdomen was prepped and draped in the sterile field. A time-out procedure was carried out as per protocol. Supraumbilical midline incision was made. Veress needle was inserted. Abdomen was insufflated with 3 liters of CO2. A 12 mm port was placed. Laparoscope was placed. Under videoscopic guidance, a 5 mm port was placed in the suprapubic midline and a 12 mm port in the left lower quadrant. The patient was placed in deep Trendelenburg position and rotated to the left. The cecum was bluntly dissected starting along the right gutter. At the base of the cecum, there were 2 loops of small bowel that were densely adherent. These were from the base of the cecum using endoscopic Kittners blunt dissectors. Once this was done, I was able to see the base of the appendix. It appeared to be intact. Further dissection of the two loops of bowel unroofed a large abscess. Some of this fluid was captured for culture and the rest was irrigated. The bowel was then dissected off the rest of the proximal appendix. It was very friable. The base of the appendix was freed up enough that I could make an incision in the mesoappendix and an Endo-ODETTE stapler was safely placed across the base of the appendix without difficulty. The mesoappendix to this segment was bluntly dissected and the vessels were clipped and divided. This was sent as a specimen as proximal appendix. I could see the end of the distal portion of the appendix tunneling cephalad. Using blunt dissectors and the [place] forceps I was able to bluntly dissect this and another cavity of purulence was encountered. This was irrigated free. The base of the tail of the appendix was then removed. It was somewhat fragmented. The dissection was carried out until the dome of the abscess was fully open. Copious irrigation was carried out and suctioned. Being satisfied that the abscess cavity was fully unroofed, irrigation was carried out in the pelvis. A drain was placed in the bed of the abscess cavity and in the right gutter and another drain was placed in the pelvis. These were brought out through a separate stab incision. CO2 was allowed to escape from the abdomen and the ports were removed. Drains were secured with 2-0 nylon. Fascia at the umbilicus was closed with interrupted 0 Vicryl. Skin was closed with suyapa. Tegaderm dressings were placed and drain sponges were placed around the drain. The patient tolerated the procedure well. He was awakened and transferred to a bed and taken to the postanesthetic care unit in satisfactory condition. LCS:michel Job ID: [id number] Doc ID: [id number] Kasey Valdez M.D.
--- NOTE | 2019-09-20 16:25 | Discharge Summary ---
Providers - Providers Patient information: Note initiated : 09/20/19 at 4:22 pm Service Date, if different from initiated Date: [] Patient: Felix Morin 44 y/o M admitted on 09/14/19 for Abdominal Pain. Chief Complaint: [] Date of admission: 09/14/19 Discharge date: 09/20/19 Attending physician: Kasey Valdez Hospitalization Hospital Course: 44-year-old male who is admitted with acute appendicitis with perforation and appendiceal abscess. He presented with a two-week history of progressive right lower quadrant and hypogastric pain. He later developed more severe pain with nausea and vomiting. He presented to the emergency room with tender mass in his right lower quadrant and CT evidence of perforated appendix with a large appendiceal abscess. He underwent laparoscopic appendectomy with drainage of appendiceal abscess. Surgery progressed uneventfully. He had a period of postoperative ileus, but gradually improved. His white blood count has decreased from 21,000-13,000. He's presently afebrile and is having regular bowel movements. He has having serous drainage from his RAMÓN drains. Patient is stable for discharge home on oral ciprofloxacin and metronidazole. Discharge diagnosis: acute appendicitis with perforation Secondary discharge diagnosis: Appendiceal abscess Reason for admission: abdominal pain, nausea, vomiting and sepsis Procedures: Laparoscopic appendectomy with drainage of appendiceal abscess Pertinent studies/significant findings: CT of abdomen and pelvis with IV contrast Complications: None Exam Temp Pulse Resp BP Pulse Ox 97.9 F 123 H 16 141/100 96 09/20/19 12:00 09/20/19 12:00 09/20/19 12:00 09/20/19 12:09/20/19 12:00 - General physical appearance well developed, well nourished, no distress - Eyes PERRL, normal ocular movement - ENT normal pinna, normal nares, normal mucosa, no hearing loss, no congestion - Head Head exam IM: Present: atraumatic, normocephalic - Neck no masses, no bruits, trachea midline, no lymphadenopathy, no venous distension - Cardiovascular Cardiovascular exam IM: Present: normal rate and rhythm - Respiratory normal expansion, normal respiratory effort, clear to percussion, clear to auscultation - Abdomen Abdomen: Present: soft, tender (mild tenderness in the right lower quadrant and hypogastrium), bowel sounds Hernia: Present: none - Genitourinary Present: normal penis with no external lesions - Integumentary Present: no rash, no growths, no abnormal pigmentation - Neurologic Present: normal coordination, normal sensation - Musculoskeletal Present: normal gait, normal posture - Psychiatric Present: oriented to time, oriented to person, oriented to place, speech is normal, memory intact Discharge Plan - Patient/Caregiver Discharge Instructions Activity: increase activity as tolerated Diet: Regular Diet ( to come pick) Prescriptions: Ciprofloxacin [Cipro] 500 mg PO BID #40 tab Transmission Status: Pending to [facility] #[id number] metroNIDAZOLE [Flagyl] 500 mg PO Q8 #60 tab Transmission Status: Pending to [facility] #[id number] oxyCODONE/APAP [Percocet 10-325Mg] 1 tab PO Q4HP PRN #40 tablet PRN Reason: Per Pain Protocol Transmission Status: Sent to [facility] #[id number] Other Amb Orders: Wound Care Instructions Location: None Selected - Follow up Plan Follow up with: Amy Phelps DNP, [facility] [Primary Care Provider] - Kasey Valdez MD [Physician] - Disposition: Home, Self-Care Prognosis: Good Rehab Potential: Good I certify that the patient requires SNF services.: No Overall status at discharge: patient is progressing back to baseline Pending Studies Resuscitation Status Full Code Diet GI Soft/Transitional Start ThuSep 20 1619 Al Hydrox/Mg Hydrox/Simethicone (Maalox) 30 ml PO Q4HP PRN PRN Reason: Dyspepsia Last Admin: 09/17/19 04:38 Dose: 30 ml Documented by: Admin: 09/16/19 22:11 Dose: 30 ml Documented by: Admin: 09/15/19 19:46 Dose: 30 ml Documented by: ROMAN Hydromorphone HCl (Dilaudid) 1 mg IV Q2HP PRN; Protocol PRN Reason: Per Pain Protocol Last Admin: 09/19/19 12:11 Dose: 1 mg Documented by: Admin: 09/19/19 08:16 Dose: 1 mg Documented by: Admin: 09/19/19 03:09 Dose: 1 mg Documented by: Admin: 09/18/19 23:55 Dose: 1 mg Documented by: Admin: 09/18/19 20:30 Dose: 1 mg Documented by: Admin: 09/18/19 17:35 Dose: 1 mg Documented by: Admin: 09/18/19 15:11 Dose: 1 mg Documented by: Admin: 09/18/19 12:14 Dose: 1 mg Documented by: [email or web address] Admin: 09/18/19 09:07 Dose: 1 mg Documented by: [email or web address] Admin: 09/18/19 06:58 Dose: 1 mg Documented by: Admin: 09/18/19 04:23 Dose: 1 mg Documented by: Admin: 09/18/19 02:03 Dose: 1 mg Documented by: Admin: 09/17/19 23:13 Dose: 1 mg Documented by: Admin: 09/17/19 19:43 Dose: 1 mg Documented by: Admin: 09/17/19 17:13 Dose: 1 mg Documented by: Admin: 09/17/19 13:08 Dose: 1 mg Documented by: Admin: 09/17/19 09:53 Dose: 1 mg Documented by: Admin: 09/17/19 06:49 Dose: 1 mg Documented by: Admin: 09/17/19 04:22 Dose: 1 mg Documented by: Admin: 09/17/19 00:16 Dose: 1 mg Documented by: Admin: 09/16/19 22:18 Dose: 1 mg Documented by: Admin: 09/16/19 20:04 Dose: 1 mg Documented by: Admin: 09/16/19 16:05 Dose: 1 mg Documented by: Admin: 09/16/19 13:59 Dose: 1 mg Documented by: F Admin: 09/16/19 11:51 Dose: 1 mg Documented by: Admin: 09/16/19 09:16 Dose: 1 mg Documented by: [email or web address] Admin: 09/16/19 05:58 Dose: 1 mg Documented by: Admin: 09/16/19 01:10 Dose: 1 mg Documented by: Admin: 09/15/19 23:04 Dose: 1 mg Documented by: Admin: 09/15/19 20:42 Dose: 1 mg Documented by: Admin: 09/15/19 18:14 Dose: 1 mg Documented by: Admin: 09/15/19 15:44 Dose: 1 mg Documented by: Admin: 09/15/19 12:38 Dose: 1 mg Documented by: Admin: 09/15/19 09:33 Dose: 1 mg Documented by: Admin: 09/15/19 05:53 Dose: 1 mg Documented by: Admin: 09/15/19 02:48 Dose: 1 mg Documented by: Admin: 09/15/19 00:22 Dose: 1 mg Documented by: Admin: 09/14/19 19:02 Dose: 1 mg Documented by: [email or web address] Acetaminophen (Ofirmev) 1,000 mg in 100 mls @ 200 mls/hr IV Q6HP PRN; Protocol PRN Reason: Per Pain Protocol/Fever > 101 Last Infusion: 09/18/19 17:03 Dose: 200 mls/hr Documented by: Admin: 09/18/19 16:33 Dose: 200 mls/hr Documented by: [email or web address] Infusion: 09/17/19 13:40 Dose: 200 mls/hr Documented by: Admin: 09/17/19 13:09 Dose: 200 mls/hr Documented by: [email or web address] Infusion: 09/17/19 03:00 Dose: 200 mls/hr Documented by: Admin: 09/17/19 02:30 Dose: 200 mls/hr Documented by: Infusion: 09/16/19 16:35 Dose: 0 mls/hr Documented by: Admin: 09/16/19 16:05 Dose: 200 mls/hr Documented by: Infusion: 09/16/19 02:59 Dose: 200 mls/hr Documented by: Admin: 09/16/19 02:29 Dose: 200 mls/hr Documented by: ROMAN Ciprofloxacin (Cipro) 400 mg in 200 mls @ 200 mls/hr IV Q12H CHET; Protocol Last Infusion: 09/20/19 10:12 Dose: 0 mls/hr Documented by: Admin: 09/20/19 09:12 Dose: 200 mls/hr Documented by: Infusion: 09/19/19 21:58 Dose: 0 mls/hr Documented by: Admin: 09/19/19 20:49 Dose: 200 mls/hr Documented by: Infusion: 09/19/19 09:38 Dose: 0 mls/hr Documented by: Admin: 09/19/19 08:38 Dose: 200 mls/hr Documented by: Infusion: 09/18/19 21:48 Dose: 200 mls/hr Documented by: Admin: 09/18/19 20:48 Dose: 200 mls/hr Documented by: Infusion: 09/18/19 10:41 Dose: 200 mls/hr Documented by: Admin: 09/18/19 09:41 Dose: 200 mls/hr Documented by: Admin: 09/17/19 23:37 Dose: Not Given Documented by: Infusion: 09/17/19 18:45 Dose: 200 mls/hr Documented by: Admin: 09/17/19 17:45 Dose: 200 mls/hr Documented by: [email or web address] Metronidazole (Flagyl) 500 mg in 100 mls @ 100 mls/hr IV Q6H CHET; Protocol Last Infusion: 09/20/19 13:29 Dose: 0 mls/hr Documented by: [email or web address] Admin: 09/20/19 12:26 Dose: 100 mls/hr Documented by: Infusion: 09/20/19 06:39 Dose: 0 mls/hr Documented by: Admin: 09/20/19 05:26 Dose: 100 mls/hr Documented by: Infusion: 09/20/19 01:46 Dose: 0 mls/hr Documented by: Admin: 09/19/19 23:29 Dose: 100 mls/hr Documented by: Infusion: 09/19/19 20:33 Dose: 0 mls/hr Documented by: Admin: 09/19/19 17:27 Dose: 100 mls/hr Documented by: Infusion: 09/19/19 12:59 Dose: 0 mls/hr Documented by: Admin: 09/19/19 11:51 Dose: 100 mls/hr Documented by: [email or web address] Infusion: 09/19/19 06:59 Dose: 0 mls/hr Documented by: [email or web address] Admin: 09/19/19 05:42 Dose: 100 mls/hr Documented by: Infusion: 09/19/19 00:56 Dose: 100 mls/hr Documented by: Admin: 09/18/19 23:56 Dose: 100 mls/hr Documented by: Infusion: 09/18/19 18:36 Dose: 100 mls/hr Documented by: Admin: 09/18/19 17:36 Dose: 100 mls/hr Documented by: [email or web address] Infusion: 09/18/19 13:14 Dose: 100 mls/hr Documented by: [email or web address] Admin: 09/18/19 12:14 Dose: 100 mls/hr Documented by: [email or web address] Infusion: 09/18/19 06:46 Dose: 100 mls/hr Documented by: [email or web address] Admin: 09/18/19 05:46 Dose: 100 mls/hr Documented by: Infusion: 09/18/19 01:55 Dose: 100 mls/hr Documented by: Admin: 09/18/19 00:55 Dose: 100 mls/hr Documented by: Infusion: 09/17/19 20:15 Dose: 100 mls/hr Documented by: Admin: 09/17/19 19:15 Dose: 100 mls/hr Documented by: Infusion: 09/17/19 16:36 Dose: 100 mls/hr Documented by: Admin: 09/17/19 15:36 Dose: 100 mls/hr Documented by: [email or web address] Sodium Chloride (Sodium Chloride 0.9%) 1,000 mls @ 50 mls/hr IV .Q20H CHET Last Admin: 09/20/19 05:26 Dose: Not Given Documented by: Admin: 09/19/19 08:20 Dose: Not Given Documented by: PAPI Metoclopramide HCl (Reglan) 10 mg IV Q6 CHET Last Admin: 09/20/19 12:26 Dose: 10 mg Documented by: Admin: 09/20/19 05:26 Dose: 10 mg Documented by: Admin: 09/19/19 23:29 Dose: 10 mg Documented by: Admin: 09/19/19 17:27 Dose: 10 mg Documented by: Admin: 09/19/19 12:59 Dose: Not Given Documented by: Admin: 09/19/19 05:37 Dose: 10 mg Documented by: Admin: 09/18/19 23:51 Dose: 10 mg Documented by: Admin: 09/18/19 17:35 Dose: 10 mg Documented by: Admin: 09/18/19 12:14 Dose: 10 mg Documented by: Admin: 09/18/19 05:44 Dose: 10 mg Documented by: Admin: 09/18/19 00:56 Dose: 10 mg Documented by: Admin: 09/17/19 17:42 Dose: 10 mg Documented by: Admin: 09/17/19 12:13 Dose: 10 mg Documented by: Admin: 09/17/19 06:37 Dose: 10 mg Documented by: Admin: 09/17/19 00:00 Dose: 10 mg Documented by: Admin: 09/16/19 17:43 Dose: 10 mg Documented by: Admin: 09/16/19 11:50 Dose: 10 mg Documented by: Admin: 09/16/19 05:59 Dose: 10 mg Documented by: Admin: 09/16/19 00:57 Dose: 10 mg Documented by: Admin: 09/15/19 18:12 Dose: 10 mg Documented by: [email or web address] Ondansetron HCl (Zofran) 4 mg IV Q4HP PRN; Protocol PRN Reason: Nausea/Vomiting Last Admin: 09/17/19 00:12 Dose: 4 mg Documented by: Admin: 09/16/19 09:40 Dose: 4 mg Documented by: Admin: 09/15/19 15:44 Dose: 4 mg Documented by: [email or web address] Admin: 09/15/19 09:32 Dose: 4 mg Documented by: [email or web address] Oxycodone/Acetaminophen (Percocet 10-325mg) 1 tab PO Q4HP PRN; Protocol PRN Reason: Per Pain Protocol Last Admin: 09/20/19 13:26 Dose: 1 tab Documented by: Admin: 09/20/19 09:12 Dose: 1 tab Documented by: Admin: 09/20/19 02:21 Dose: 1 tab Documented by: Admin: 09/19/19 20:49 Dose: 1 tab Documented by: Admin: 09/19/19 13:10 Dose: 1 tab Documented by: Admin: 09/19/19 08:37 Dose: 1 tab Documented by: PAPI Simethicone (Mylicon) 160 mg CHEWED QIDP PRN PRN Reason: GAS Last Admin: 09/16/19 11:55 Dose: 160 mg Documented by: Admin: 09/15/19 15:44 Dose: 160 mg Documented by: [email or web address] Admin: 09/15/19 12:39 Dose: 160 mg Documented by: ASMWilliam Shift Summary 09/20/19 15:04 Shift Summary by Elaine Castanon Pt is A&O x4, is up ad shaniqua in his room to and from the . Had a shower today. 2 lap sites to the upper abdomen and 2 RAMÓN drains inserted to lower abdomen with serosanguineous fluid out of both. IV to left arm and IV to right arm. Fluids at 50ml/hr, IV ABO. Tolerating full liquids. Pain is controlled with Percocet 10/325 1 tab Q4H as needed. Initialized on 09/20/19 15:04 - END OF NOTE
== END 2019-09-20 18:02 | disposition home or self-care (01) | DRG 338 ==
LOC: ED 10:33 → MEDSUR 12:39
PROVIDERS: ADMIT Family Medicine Adult Medicine; ATTEND Family Medicine Adult Medicine